=== PATIENT | female | born 1970 | race Caucasian/White ===

== ENCOUNTER 2019-11-19 14:01 | Emergency (ER) | payer OTHER ==
[~2019-11-19] VITALS: Ht 165.1 cm; Wt 75.0 kg
[2019-11-19 14:17] VITALS: Ht 165.1 cm; Wt 75.0 kg
[2019-11-19] MEDS ORDERED: PHENERGAN25 M1 PO (15:46)
[2019-11-19] MEDS ORDERED: BUTALB-APAP-CA1 EACH PO (15:47)
[2019-11-19 15:53] VITALS: BP 116/75
== END 2019-11-19 15:55 | disposition home or self-care (01) ==
LOC: D.ER 14:01
DX: G43.909 Migraine, unspecified, not intractable, without status migrainosus (principal); R11.0 Nausea

== ENCOUNTER 2020-01-26 19:48 | Emergency (ER) | payer OTHER ==
[~2020-01-26] VITALS: Ht 165.1 cm; Wt 75.0 kg
[~2020-01-26 19:48] MED LIST: BUTALB-APAP-CA1 EACH PO; PHENERGAN25 M1 PO
[2020-01-26 20:00] VITALS: Ht 165.1 cm; Wt 75.0 kg
[2020-01-26] MEDS ORDERED: TOPAMAX50 MG PO (20:03)
[2020-01-26 20:26] LABS: BASOPHILS 0.3 % (0-2); EOSINOPHILS 2.2 % (0-7); HEMATOCRIT 42.5 % (36.0-48.0); HEMOGLOBIN 14.2 g/dL (12-16); IMMATURE GRANULOCYTES 0.2 % (0-5); LYMPHOCYTES 30.4 % (15-50); MCH 32.3 pg (26.0-34.0); MCHC 33.4 g/dL (31.0-37.0); MCV 96.8 fL (80.0-100.0); MEAN PLATELET VOLUME 10.3 fL (7.4-10.4); MONOCYTES 8.6 % (2-11); NEUTROPHILS 58.3 % (40-80); PLATELET COUNT 263 10x3/uL (130-400); RBC 4.39 10x6/uL (4.00-5.40); RDW 12.8 % (11.5-14.5); WBC 11.8 10x3/uL (4.8-10.8)
[2020-01-26 20:27] LABS: BILIRUBIN NEGATIVE (NEGATIVE); GLUCOSE NEGATIVE (NEGATIVE); KETONE NEGATIVE (NEGATIVE); NITRITE NEGATIVE (NEGATIVE); SPECIFIC GRAVITY 1.005 (1.005-1.020); UROBILINOGEN NORMAL (NORMAL)
[2020-01-26 20:29] LABS: BACTERIA FEW /hpf (NEGATIVE); RED CELLS - URINE 0-5 /hpf (0-5); WHITE CELLS - URINE RARE /hpf (NEGATIVE)
[2020-01-26 20:30] LABS: HCG URINE NEGATIVE (NEGATIVE)
[2020-01-26 20:35] LABS: CALCIUM 8.3 mg/dL (8.5-10.1); CARBON DIOXIDE 23.8 mmol/L (21.0-32.0); CREATININE - SERUM 1.2 mg/dL (0.6-1.3); POTASSIUM - SERUM 3.8 mmol/L (3.5-5.1)
[2020-01-26 20:42] LABS: ALBUMIN 3.8 g/dL (3.4-5.0); BILIRUBIN - TOTAL 0.32 mg/dL (0.2-1.3)
[2020-01-27 00:37] VITALS: BP 132/84
== END 2020-01-27 00:38 | disposition home or self-care (01) ==
LOC: D.ER 19:48
PROVIDERS: Family Medicine
DX: N83.209 Unspecified ovarian cyst, unspecified side (principal); R93.89 Abnormal findings on diagnostic imaging of other specified body structures; N93.9 Abnormal uterine and vaginal bleeding, unspecified

== ENCOUNTER → 2020-01-29 20:16 | Outpatient (CLI) | payer OTHER ==
[2020-01-26 20:00] VITALS: BMI 27.5
[~2020-01-29 20:16] MED LIST changes: +TOPAMAX50 MG PO
== END | disposition home or self-care (01) ==
LOC: D.MAMMO 01-22 15:45
PROVIDERS: ATTEND Nurse Practitioner
DX: Z12.31 Encounter for screening mammogram for malignant neoplasm of breast (principal)

== ENCOUNTER 2020-02-22 13:00 | Outpatient (CLI) | payer OTHER ==
[2020-01-26 20:00] VITALS: BMI 27.5
== END 2020-02-22 13:35 | disposition home or self-care (01) ==
LOC: D.MAMMO 13:00
PROVIDERS: ATTEND Nurse Practitioner
DX: R92.8 Other abnormal and inconclusive findings on diagnostic imaging of breast (principal)

== ENCOUNTER 2021-02-12 18:25 | Emergency (ER) | payer OTHER ==
[~2021-02-12] VITALS: Ht 165.1 cm; Wt 57.7 kg
[~2021-02-12 18:25] MED LIST changes: +ANXIETY MEDICATION; +TORADOL10 MG PO
[2021-02-12 18:40] VITALS: BP 111/76; Ht 165.1 cm; Wt 57.7 kg
[2021-02-12] MEDS ORDERED: NAPROSYN500 MG PO (20:24)
== END 2021-02-12 20:42 | disposition home or self-care (01) ==
LOC: D.ER 18:25
DX: M79.645 Pain in left finger(s) (principal); S63.617A Unspecified sprain of left little finger, initial encounter; S60.052A Contusion of left little finger without damage to nail, initial encounter; W23.0XXA Caught, crushed, jammed, or pinched between moving objects, initial encounter; Y93.9 Activity, unspecified; Y92.9 Unspecified place or not applicable

== ENCOUNTER 2021-04-07 16:38 | Emergency (ER) | payer OTHER ==
[~2021-04-07] VITALS: Ht 165.1 cm; Wt 53.6 kg
[~2021-04-07 16:38] MED LIST changes: +NAPROSYN500 MG PO
[2021-04-07 16:42] VITALS: Ht 165.1 cm; Wt 53.6 kg
[2021-04-07 17:28] LABS: BASOPHILS 0.2 % (0-2); EOSINOPHILS 0.2 % (0-7); HEMATOCRIT 46.6 % (36.0-48.0); HEMOGLOBIN 15.7 g/dL (12-16); IMMATURE GRANULOCYTES 0.2 % (0-5); MCH 31.8 pg (26.0-34.0); MCHC 33.7 g/dL (31.0-37.0); MCV 94.3 fL (80.0-100.0); MONOCYTES 4.9 % (2-11); NEUTROPHIL ABS# 10.32 10x3/uL (1.56-6.13); NEUTROPHILS 88.5 % (40-80); PLATELET COUNT 230 10x3/uL (130-400); RBC 4.94 10x6/uL (4.00-5.40); RDW 12.9 % (11.5-14.5); WBC 11.7 10x3/uL (4.8-10.8)
[2021-04-07 17:38] LABS: APTT 32.5 SECONDS (22.8-39.4); INR 1.17 (0.85-1.17); PROTIME 13.8 SECONDS (11.6-15.0)
[2021-04-07 17:45] LABS: CALC OSMOLALITY 277 mosm/kg (275-300); CALCIUM 8.7 mg/dL (8.5-10.1); CARBON DIOXIDE 17.9 mmol/L (21.0-32.0); CHLORIDE - SERUM 106 mmol/L (98-107); CREATININE - SERUM 0.8 mg/dL (0.6-1.3); GLUCOSE 90 mg/dL (74-106); POTASSIUM - SERUM 3.7 mmol/L (3.5-5.1); SODIUM 138 mmol/L (136-145); UREA NITROGEN 18 mg/dL (7-18); eGFR NON AFRICAN AMERICAN 80 mL/min (90-120)
[2021-04-07 18:06] LABS: ALBUMIN 3.4 g/dL (3.4-5.0); ALKALINE PHOSPHATASE 62 U/L (30-120); ALT (SGPT) 22 U/L (10-68); CKMB 0.5 U/L (0.0-3.6); CREATINE KINASE 40 UL (21-215); PROTEIN - SERUM 6.7 g/dL (6.4-8.2)
[2021-04-07 18:11] LABS: TROPONIN-I < 0.017 ng/mL (0.000-0.060)
[2021-04-07 19:00] LABS: INFLUENZA TYPE A NEGATIVE (NEGATIVE); INFLUENZA TYPE B NEGATIVE (NEGATIVE); SARS-CoV-2 ANTIGEN NEGATIVE- SARS-COV-2 (NEGATIVE)
[2021-04-07 19:35] LABS: BILIRUBIN NEGATIVE (NEGATIVE); KETONE MODERATE mg/dL (NEGATIVE); NITRITE NEGATIVE (NEGATIVE); UROBILINOGEN NORMAL mg/dL (< 2)
[2021-04-07 20:14] VITALS: BP 105/60
== END 2021-04-07 20:14 | disposition home or self-care (01) ==
LOC: D.ER 16:38
PROVIDERS: Family Medicine
DX: E86.0 Dehydration (principal); R06.02 Shortness of breath; T50.B95A Adverse effect of other viral vaccines, initial encounter

== ENCOUNTER → 2021-04-16 07:59 | Outpatient (CLI) | payer OTHER ==
[2021-04-07 16:42] VITALS: BMI 19.6
== END | disposition home or self-care (01) ==
LOC: D.US 07:59
PROVIDERS: ATTEND Nurse Practitioner
DX: R63.4 Abnormal weight loss (principal)

== ENCOUNTER → 2021-04-22 10:25 | Outpatient (CLI) | payer OTHER ==
[2021-04-07 16:42] VITALS: BMI 19.6
== END | disposition home or self-care (01) ==
LOC: D.CT 10:00
PROVIDERS: ATTEND Nurse Practitioner
DX: D18.03 Hemangioma of intra-abdominal structures (principal)

== ENCOUNTER 2021-05-14 05:48 | Day surgery (SDC) | payer OTHER ==
[~2021-05-14] VITALS: Ht 162.6 cm; Wt 54.4 kg
[~2021-05-14 05:48] MED LIST changes: +ATARAX 25 MG TA25 MG PO; +BUSPAR10 MG PO; +MINIPRESS1 MG PO
[2021-05-14 06:09] LABS: BASOPHILS 0.9 % (0-2); EOSINOPHILS 2.7 % (0-7); HEMOGLOBIN 14.3 g/dL (12-16); LYMPHOCYTES 23.8 % (15-50); MCH 31.1 pg (26.0-34.0); MCHC 32.5 g/dL (31.0-37.0); MCV 95.8 fL (80.0-100.0); MEAN PLATELET VOLUME 7.3 fL (7.4-10.4); MONOCYTES 6.8 % (2-11); NEUTROPHILS 65.8 % (40-80); RBC 4.59 10x6/uL (4.00-5.40); RDW 13.4 % (11.5-14.5)
[2021-05-14 06:24] LABS: PLATELET COUNT 286 10x3/uL (130-400)
[2021-05-14 06:30] LABS: ANION GAP 11.9 mmol/L (8-16); CALCIUM 8.6 mg/dL (8.5-10.1); CARBON DIOXIDE 24.2 mmol/L (21.0-32.0); CREATININE - SERUM 1.1 mg/dL (0.6-1.3); POTASSIUM - SERUM 4.1 mmol/L (3.5-5.1)
[2021-05-14 06:32] LABS: HCG SERUM NEGATIVE (NEGATIVE)
[2021-05-14 06:58] VITALS: BP 115/60; Ht 162.6 cm; Wt 54.4 kg
[2021-05-14] MEDS ORDERED: ULTRAM50 MG PO (09:20)
--- NOTE | 2021-05-14 15:13 | NUR ---
1034 IV DC'D. CATHETER TIP INTACT. NO BLEEDING AT SITE. BANDAID APPLIED. DISCHARGED INSTRUCTIONS REVIEWED [facility] PT WHO VOICES UNDERSTANDING OF THESE INSTRUCTIONS.
--- NOTE | 2021-05-18 14:49 | OP ---
PATIENT NAME: DAVEY RODRIGUEZ MEDICAL RECORD: [id number] :70 LOCATION:[facility] ADMISSION DATE: SURGEON: FARZANEH JOHNSON MD DATE OF OPERATION: 05/14/2021 PREOPERATIVE DIAGNOSES: 1. Left facial sebaceous cyst. 2. Unintentional weight loss. POSTOPERATIVE DIAGNOSES: 1. Left facial sebaceous cyst. 2. Unintentional weight loss. PROCEDURE: Excision of 1.8 cm left facial sebaceous cyst. SURGEON: Farzaneh Johnson MD DESCRIPTION OF PROCEDURE: The patient's left cheek were prepped and draped in sterile fashion. There was a cyst just anterior to the left ear. A longitudinal incision was made overlying this. Electrocautery was used to dissect through the tissues around the cyst and we eventually used sharp dissection to come completely around the cyst and elevated off the underlying fatty subcutaneous tissues. The cyst was completely excised. We then irrigated out the wound bed with normal saline. Any bleeding from the wound bed was then treated with electrocautery. The subcutaneous tissues were infused 5 mL of 1% lidocaine with epinephrine. The skin was then reapproximated with interrupted 3-0 Vicryl and running subcutaneous 5-0 Monocryl. COMPLICATIONS: None. CONDITION: Stable. ANESTHESIA: General endotracheal and local. BLOOD LOSS: 20 mL. TRANSINT:[id number] Voice Confirmation ID: [id number] DOCUMENT ID: [id number] FARZANEH JOHNSON MD at 1449 CC: [id number] DICTATION DATE: 05/14/21 0924 BAND STRAIGHTENER: 05/14/21 0945 [facility] 05/14/[address] [id number]
== END 2021-05-14 10:45 | disposition home or self-care (01) ==
LOC: D.OPS 05:48
PROVIDERS: Anesthesiology; ATTEND Surgery
DX: L72.3 Sebaceous cyst (principal); R63.4 Abnormal weight loss; D36.7 Benign neoplasm of other specified sites

== ENCOUNTER 2021-05-19 14:30 | Outpatient (CLI) | payer OTHER ==
[2021-05-14 06:58] VITALS: BMI 20.6
[~2021-05-19 14:30] MED LIST changes: +ULTRAM50 MG PO
== END 2021-05-19 23:59 | disposition home or self-care (01) ==
LOC: D.MAMMO 14:30
PROVIDERS: ATTEND Nurse Practitioner
DX: Z12.31 Encounter for screening mammogram for malignant neoplasm of breast (principal)